=== PATIENT | female | born 1980 | race Caucasian/White ===

== ENCOUNTER 2017-02-01 13:54 | Outpatient (CLI) | payer MEDICAID ==
[~2017-02-01] VITALS: Ht 162.6 cm; Wt 100.2 kg
[2017-02-01 13:57] VITALS: Ht 162.6 cm; Wt 100.2 kg
[2017-02-01] MEDS ORDERED: PREN1TAB31 PO (14:05)
[2017-02-01] MEDS ORDERED: ASPI-535 PO (14:05)
[2017-02-01 14:28] LABS: ADD SCAN DIFF NO
[2017-02-01 14:30] LABS: BASOPHILS % 0.3 % (0.0-2.0); EOSINOPHILS # 0.1 10^3/ul (0.0-0.5); EOSINOPHILS % 1.3 % (0.0-7.0); HEMATOCRIT 33.1 % (37.0-47.0); HEMOGLOBIN 11.2 g/dl (12.0-16.0); LYMPHOCYTES # 1.9 10^3/ul (0.8-2.9); LYMPHOCYTES % 19.2 % (15.0-51.0); MEAN CORPUSCULAR HEMOGLOBIN 30.5 pg (29.0-33.0); MEAN CORPUSCULAR HGB CONC 33.8 g/dl (32.0-37.0); MEAN CORPUSCULAR VOLUME 90.2 fl (82.0-101.0); MEAN PLATELET VOLUME 9.6 fl (7.4-10.4); MONOCYTE # 0.8 10^3/ul (0.3-0.9); MONOCYTES % 7.9 % (0.0-11.0); NEUTROPHIL # 6.9 10^3/ul (1.6-7.5); NEUTROPHILS % 70.5 % (39.0-77.0); PLATELET COUNT 252 10^3/UL (140-415); RED BLOOD COUNT 3.67 10^6/ul (4.20-5.40); RED CELL DISTRIBUTION WIDTH 13.4 % (11.5-14.5); WHITE BLOOD COUNT 9.8 10^3/ul (4.8-10.8)
[2017-02-01 14:48] LABS: ALBUMIN 4.2 g/dl (3.3-4.9); ALBUMIN/GLOBULIN RATIO 1.35; BILIRUBIN,INDIRECT 0.2 mg/dl (0-1.1); BILIRUBIN,TOTAL 0.2 mg/dl (0.2-1.3); CALCIUM 9.4 mg/dl (8.4-10.2); CREATININE 0.45 mg/dl (0.44-1.00); POTASSIUM 3.8 mmol/L (3.5-5.1); TOTAL PROTEIN 7.3 g/dl (6.1-8.1); URIC ACID 4.9 mg/dl (3.1-7.9)
--- NOTE | 2017-02-01 14:58 | RADRPT ---
PROCEDURE: US OB. CLINICAL INDICATION: Size and dates , pH TECHNIQUE: Multiple sonographic images of the pelvis and gravid uterus were obtained. The images were reviewed on a PACS workstation. COMPARISON: No prior studies are available for comparison. FINDINGS: There is a single viable intrauterine gestation. Cardiac activity is present with 129 beats per min [place]. There is a vertex presentation. The placenta is fundal. There is no evidence for an abruption or placenta previa. There is a normal amount of amniotic fluid with an ALBA = 13.8 cm. Measurements were made in order to determine age. The results are as follows: BPD =9.1 cm HC =31.1 cm AC =33 cm FL =7.1 cm Estimated gestational age of approximately 36 weeks and 2 days based on ultrasound measurements. Clinical age: 36 weeks and 5 days. The estimated date of delivery is 02/27/17, based on ultrasound measurements. The EFW = 2958 g, 49%, based on LMP age. RPTAT: AA IMPRESSION: Single viable intrauterine gestation of approximately 36 weeks and 2 days based on ultrasound measu rements. Normal ALBA. .Ken Joel MD, Date Time Electronically viewed and signed by .Ken Joel MD, on 02/01/2017 14:58 .S/
[2017-02-01 15:20] LABS: ADD UMIC NO; URINE BILIRUBIN (Dip) NEGATIVE (NEGATIVE); URINE BLOOD (Dip) NEGATIVE (NEGATIVE); URINE COLOR LT. YELLOW (YELLOW); URINE GLUCOSE (Dip) NEGATIVE (NEGATIVE); URINE KETONES (Dip) TRACE (NEGATIVE); URINE LEUKOCYTE ESTERASE (Dip) NEGATIVE (NEGATIVE); URINE NITRITE (Dip) NEGATIVE (NEGATIVE); URINE TOTAL PROTEIN (Dip) NEGATIVE (NEGATIVE); URINE UROBILINOGEN (Dip) 0.2 E.U./dL (0.1-1.0)
--- NOTE | 2017-02-01 20:59 | CONS ---
Date/Time of Note Date/Time of Note DATE: 02/01/17 TIME: 20:51 Consultation Date/Type/Reason Admit Date/Time February 01, 2070 OB triage consult Reason for Consultation This patient is 36 years old 3 para 2 with estimated date of confinement of 02/24/2017 which makes her 36 weeks and 5 days today. She was referred to the triage unit to rule out possible -induced hypertension. In her past she had 1 spontaneous vaginal delivery and one delivery by section Currently she is taking aspirin 81 mg daily folic acid On examination she is a well-developed well-nourished patient in her late Her vital signs close to normal except that her first blood pressure measurement was 144/84 2 hours later her subsequent blood pressure was 126/79 with pulse rate of 89, respiration 18, oxygen saturation of 99% She was having occasional contraction. heart tone was around 140/min heart rate tracing there was good variability occasional acceleration no deceleration noted Laboratory Tests Test 02/01/17 14:20 White Blood Count 9.810^3/ul Red Blood Count 3.6710^6/ul Hemoglobin 11.2g/dl Hematocrit 33.1% Mean Corpuscular Volume 90.2fl Mean Corpuscular Hemoglobin 30.5pg Mean Corpuscular Hemoglobin Concent 33.8g/dl Red Cell Distribution Width 13.4% Platelet Count 74599^3/UL Mean Platelet Volume 9.6fl Neutrophils % 70.5% Lymphocytes % 19.2% Monocytes % 7.9% Eosinophils % 1.3% Basophils % 0.3% Nucleated Red Blood Cells % 0.0/100WBC Neutrophils # 6.910^3/ul Lymphocytes # 1.910^3/ul Monocytes # 0.810^3/ul Eosinophils # 0.110^3/ul Basophils # 0.010^3/ul Nucleated Red Blood Cells # 0.010^3/ul Urine Color LT. YELLOW Urine Clarity CLEAR Urine pH 6.5 Urine Specific [place] <=1.005 Urine Ketones TRACE Urine Nitrite NEGATIVE Urine Bilirubin NEGATIVE Urine Urobilinogen 0.2 E.U./dL Urine Leukocyte Esterase NEGATIVE Urine Hemoglobin NEGATIVE Urine Glucose NEGATIVE% Urine Total Protein NEGATIVE Sodium Level 140mmol/L Potassium Level 3.8mmol/L Chloride Level 109mmol/L Carbon Dioxide Level 23mmol/L Anion Gap 12 Blood Urea Nitrogen 4mg/dl Creatinine 0.45mg/dl Glucose Level 92mg/dl Uric Acid 4.9mg/dl Calcium Level 9.4mg/dl Total Bilirubin 0.2mg/dl Direct Bilirubin 0.00mg/dl Indirect Bilirubin 0.2mg/dl Aspartate Amino Transf (AST/SGOT) 21IU/L Alanine Aminotransferase (ALT/SGPT) 31IU/L Alkaline Phosphatase 124IU/L Total Protein 7.3g/dl Albumin 4.2g/dl Globulin 3.10g/dl Albumin/Globulin Ratio 1.35 Constitutional: chills, diaphoresis, disoriented, febrile, improved, no complaints, other, poor po, requiring IVF, requiring O2 Eyes: discharge, no complaints, other, pain, redness, visual change ENT: bleeding, congestion, discharge, dysphagia, no complaints, other, pain, sore throat Respiratory: cough, no complaints, other, pain, pleuritic pain, shortness of breath, sputum, wheezing Cardiovascular: chest pain, edema, lightheadedness, no complaints, orthopenea, other, palpitations, paroxysmal nocturnal dyspnea Gastrointestinal: blood, constipation, decreased appetite, diarrhea, flatus, nausea, no complaints, other, pain, passing stool, vomiting Genitourinary: bleeding, discharge, dysuria, flank pain, hematuria, no complaints, other (Due to lack of contractions pelvic exam was not performed) Skin: No bruising, No erythema, No laceration, No no complaints, No other, No pruritis, No rash, No skin lesions Neurologic: other (Knee-jerk reflex was normal), No confusion, No dizziness, No focal-weakness, No headache, No no complaints , No seizure, No syncope Endocrine: No dry skin, No no complaints, No other, No polydypsia, No polyuria , No temp intolerance Additional Comments In reviewing her laboratory tests were basically normal including CBC electrolyte urinalysis and liver function test An ultrasound study was performed the report was a single viable intrauterine gestation heart tone of 129 vertex presentation placenta was fundal her ALBA was reported 13.8 cm her measurement gave her 36 weeks and 5 days date estimated delivery date of February 27, 2017. Her estimated weight was 2958 g which makes her 49th percentile Due to suspicion of preeclampsia 24-hour urine collection was explained to the patient and container was given to collect 24 hours urine Social History Smoking Status: Never smoker Exam/Review of Systems Results Result Diagram: 02/01/17 1420 02/01/17 1420 Results 24 hrs Laboratory Tests Test 02/01/17 14:20 White Blood Count 9.8 Red Blood Count 3.67 L Hemoglobin 11.2 L Hematocrit 33.1 L Mean Corpuscular Volume 90.2 Mean Corpuscular Hemoglobin 30.5 Mean Corpuscular Hemoglobin Concent 33.8 Red Cell Distribution Width 13.4 Platelet Count 252 Mean Platelet Volume 9.6 Neutrophils % 70.5 Lymphocytes % 19.2 Monocytes % 7.9 Eosinophils % 1.3 Basophils % 0.3 Nucleated Red Blood Cells % 0.0 Neutrophils # 6.9 Lymphocytes # 1.9 Monocytes # 0.8 Eosinophils # 0.1 Basophils # 0.0 Nucleated Red Blood Cells # 0.0 Urine Color LT. YELLOW Urine Clarity CLEAR Urine pH 6.5 Urine Specific [place] <=1.005 L Urine Ketones TRACE H Urine Nitrite NEGATIVE Urine Bilirubin NEGATIVE Urine Urobilinogen 0.2 E.U./dL Urine Leukocyte Esterase NEGATIVE Urine Hemoglobin NEGATIVE Urine Glucose NEGATIVE Urine Total Protein NEGATIVE Sodium Level 140 Potassium Level 3.8 Chloride Level 109 Carbon Dioxide Level 23 Anion Gap 12 Blood Urea Nitrogen 4 L Creatinine 0.45 Glucose Level 92 Uric Acid 4.9 Calcium Level 9.4 Total Bilirubin 0.2 Direct Bilirubin 0.00 Indirect Bilirubin 0.2 Aspartate Amino Transf (AST/SGOT) 21 Alanine Aminotransferase (ALT/SGPT) 31 Alkaline Phosphatase 124 H Total Protein 7.3 Albumin 4.2 Globulin 3.10 Albumin/Globulin Ratio 1.35 VLAD CLAY MD Feb 01, 2017 20:59
== END 2017-02-01 16:35 | disposition home or self-care (01) ==
LOC: OBT 13:54 → L-D 13:55 → OBT 16:35
PROVIDERS: ATTEND Obstetrics & Gynecology
DX: O26.893 Other specified pregnancy related conditions, third trimester (principal); R03.0 Elevated blood-pressure reading, without diagnosis of hypertension; O09.523 Supervision of elderly multigravida, third trimester; Z3A.36 36 weeks gestation of pregnancy
CPT/HCPCS: 76815; 80053; 81003; 84560; 85025; Z7500; G0463

== ENCOUNTER 2017-02-03 07:11 | Outpatient (CLI) | payer MEDICAID ==
[~2017-02-03] VITALS: Ht 162.6 cm; Wt 100.4 kg
[~2017-02-03 07:11] MED LIST: ASPI-535 PO; PREN1TAB31 PO
[2017-02-03] MEDS ORDERED: CALC600T5 PO (07:55)
[2017-02-03] MEDS ORDERED: FERR236T PO (07:55)
[2017-02-03 07:57] VITALS: BP 137/89; PULSE 104; RESP 18
--- NOTE | 2017-02-03 07:57 | RADRPT ---
PROCEDURE: US OB. CLINICAL INDICATION: Low ALBA TECHNIQUE: Transabdominal views of the pelvis are available for review. COMPARISON: None. FINDINGS: There is a single intrauterine gestation in a vertex position. The heart rate is present at 137 bpm. The placenta is fundal. There is no evidence of placenta previa or a placental abruption. The ALBA measures 10.8 cm. RPTAT: AA IMPRESSION: Normal ALBA. Physician Samaria Date Time Electronically viewed and signed by Brien Sosa Physician on 02/03/2017 07:57 RA/
[2017-02-03 09:57] LABS: SCRET 0.45 mg/dl (0.44-1.00)
--- NOTE | 2017-02-03 11:42 | TRIAGE ---
OB Triage Datetime Report Generated by CPN: 02/03/2017 11:42 Datetime: 02/03/2017 11:37 Assessment Type: Triage Datetime: 02/03/2017 07:48 Stage of : OB Triage Assessment Type: Triage Maternal Assessment Level of Consciousness: Fully Conscious Headache: Temporal (Annotations: 01/03, LEFT SIDE ONLY ) Blurred Vision: No Respiratory Effort: Unlabored; Regular Rhythm; Equal Expansion Breath Sounds, Left: Clear and Equal Breath Sounds, Right: Clear and Equal Nausea/Vomiting: Denies RUQ Epigastric Pain: Denies Facial Edema: None Temperature Route: Oral Fall Risk Assessment History of Falling: (0) No Secondary Diagnosis: (0) No Ambulatory Aid: (0) Bedrest/Nurse Assist IV Therapy: (0) No Gait: (0) Normal/Bedrest/Immobile Mental Status: (0) Oriented to Own Ability Fall Score: 0 Fall Risk Score Definition: No Risk: No action required Labor Evaluation Frequency: x1 Monitor Mode: External Duration (sec)2399: 50 Quality: Mild Pattern: Normal: <= 5 Contractions in 10 Minutes Resting Tone [place]: Relaxed Contraction Comments: NST [id number] Heart Rate FHR Baseline Rate: 140 Monitor Mode: External US FHR Baseline Changes: No Baseline Change Variability: Moderate 6-25 bpm Accelerations: 15X15 Decelerations: None Category: Category I Comments: NST x22 MINUTES Pain Assessment Pain Scale: 8 Pain Presence: Constant Pain Type: Pressure Pain Location: Right Groin; Left Groin Datetime: 02/03/2017 07:44 Time of Arrival: 02/03/2017 07:06 EGA: 37.0 Arrived By: Ambulatory Arrived From: Home Chief Complaint: DROP OFF 24 HOUR URINE Movement: Present Contractions: Denies/Absent Rupture of Membranes: Denies Vaginal Bleeding: None Vaginal Discharge: Denies Abdominal Trauma: Not Applicable Patient Complaints: Headache; Other Time Provider Notified: 02/03/2017 07:09 Provider Notified: DR. DELSHAD Initial Plan: NST, ALBA, BP Q 15 MIN, PIH LABS Datetime: 02/03/2017 07:24 Monitor Mode: External Monitor Mode: External US Datetime: 02/03/2017 07:13 Stage of : OB Triage Datetime: 02/03/2017 07:09 Stage of : OB Triage Datetime: 02/01/2017 16:12 Comments: pt seen by dr forrohar pt dc home on 24 hr urine collection Datetime: 02/01/2017 16:10 Labor Evaluation Frequency: NONE Monitor Mode: External Pattern: Normal: <= 5 Contractions in 10 Minutes Resting Tone [place]: Relaxed Heart Rate FHR Baseline Rate: 140 Monitor Mode: External US FHR Baseline Changes: No Baseline Change Variability: Moderate 6-25 bpm Accelerations: 15X15 Decelerations: None Category: Category I Datetime: 02/01/2017 15:40 Stage of : OB Triage Labor Evaluation Frequency: NONE Monitor Mode: External Pattern: Normal: <= 5 Contractions in 10 Minutes Heart Rate FHR Baseline Rate: 135 Monitor Mode: External US FHR Baseline Changes: No Baseline Change Variability: Moderate 6-25 bpm Accelerations: 15X15 Decelerations: None Category: Category I Pain Presence: None/Denies Datetime: 02/01/2017 14:59 Labor Evaluation Frequency: NONE Monitor Mode: External Pattern: Normal: <= 5 Contractions in 10 Minutes Heart Rate FHR Baseline Rate: 135 Monitor Mode: External US FHR Baseline Changes: No Baseline Change Variability: Moderate 6-25 bpm Accelerations: 15X15 Decelerations: None Category: Category I Pain Presence: None/Denies Datetime: 02/01/2017 14:36 Comments: U/S AT BED SIDE Datetime: 02/01/2017 14:09 Assessment Type: Triage Maternal Assessment Level of Consciousness: Fully Conscious DTR's/Clonus: DTRs 2+; No Clonus Headache: Denies Blurred Vision: No Respiratory Effort: Unlabored; Regular Rhythm; Equal Expansion Breath Sounds, Left: Clear and Equal Breath Sounds, Right: Clear and Equal Nausea/Vomiting: Denies RUQ Epigastric Pain: Denies Lower Extremities Edema: None Degree: None Upper Extremities Edema: None Degree: None Facial Edema: None Fall Risk Assessment History of Falling: (0) No Secondary Diagnosis: (0) No Ambulatory Aid: (0) Bedrest/Nurse Assist IV Therapy: (0) No Gait: (0) Normal/Bedrest/Immobile Mental Status: (0) Oriented to Own Ability Fall Score: 0 Fall Risk Score Definition: No Risk: No action required Datetime: 02/01/2017 14:08 EGA: 36.5 Datetime: 02/01/2017 14:07 Time of Arrival: 02/01/2017 14:07 Arrived By: Ambulatory Arrived From: Dr. Office Chief Complaint: R/O PIH Movement: Present Rupture of Membranes: Denies Vaginal Bleeding: None Vaginal Discharge: Denies Recent Sexual Intercouse: Denies Abdominal Trauma: Not Applicable Patient Complaints: Other Time Provider Notified: 02/01/2017 16:05 Provider Notified: DELSHAD Initial Plan: EFM Datetime: 02/01/2017 13:58 Comments: FROM [facility] TI R.O PIH.EFM APPLIED.PT DENIES ANY HEAD ACHE ,EPIGASTRIC PAIN OR BLURRY VISION AT THIS TIME.
--- NOTE | 2017-02-19 20:18 | QN ---
Documentation Comment Diagnosis: Elevated blood pressure in . MISTY ERICKSON MD Feb 19, 2017 20:17
== END 2017-02-03 11:32 | disposition left against medical advice (07) ==
LOC: L-D 07:11 → OBT 07:11
PROVIDERS: ATTEND Obstetrics & Gynecology
DX: O26.893 Other specified pregnancy related conditions, third trimester (principal); R03.0 Elevated blood-pressure reading, without diagnosis of hypertension; O09.523 Supervision of elderly multigravida, third trimester; Z3A.37 37 weeks gestation of pregnancy
CPT/HCPCS: 36415; 59025; 76815; 82575; 84156; Z7500; G0463

== ENCOUNTER 2017-02-06 12:48 | Outpatient (CLI) | payer MEDICAID ==
[~2017-02-06] VITALS: Ht 162.6 cm; Wt 100.4 kg
[~2017-02-06 12:48] MED LIST changes: +CALC600T5 PO; +FERR236T PO
[2017-02-06 13:45] VITALS: BP 131/82; PULSE 85; Ht 162.6 cm; Wt 100.4 kg
[2017-02-06 14:04] LABS: ADD SCAN DIFF NO
[2017-02-06 14:06] LABS: BASOPHILS % 0.2 % (0.0-2.0); EOSINOPHILS # 0.1 10^3/ul (0.0-0.5); EOSINOPHILS % 1.2 % (0.0-7.0); HEMATOCRIT 31.4 % (37.0-47.0); HEMOGLOBIN 10.5 g/dl (12.0-16.0); LYMPHOCYTES # 1.7 10^3/ul (0.8-2.9); LYMPHOCYTES % 19.8 % (15.0-51.0); MEAN CORPUSCULAR HGB CONC 33.4 g/dl (32.0-37.0); MEAN CORPUSCULAR VOLUME 89.7 fl (82.0-101.0); MEAN PLATELET VOLUME 9.5 fl (7.4-10.4); MONOCYTE # 0.7 10^3/ul (0.3-0.9); MONOCYTES % 7.5 % (0.0-11.0); NEUTROPHIL # 6.1 10^3/ul (1.6-7.5); NEUTROPHILS % 70.7 % (39.0-77.0); PLATELET COUNT 256 10^3/UL (140-415); RED CELL DISTRIBUTION WIDTH 13.6 % (11.5-14.5); WHITE BLOOD COUNT 8.7 10^3/ul (4.8-10.8)
[2017-02-06 14:08] LABS: ADD UMIC NO; UR BILIRUBIN (Dip) NEGATIVE (NEGATIVE); UR BLOOD (Dip) NEGATIVE (NEGATIVE); UR CLARITY CLEAR (CLEAR); UR COLOR LT. YELLOW (YELLOW); UR GLUCOSE (Dip) NEGATIVE (NEGATIVE); UR KETONES (Dip) 40 (NEGATIVE); UR LEUKOCYTE ESTERASE (Dip) NEGATIVE (NEGATIVE); UR NITRITE (Dip) NEGATIVE (NEGATIVE); UR TOTAL PROTEIN (Dip) NEGATIVE (NEGATIVE); UR UROBILINOGEN (Dip) 0.2 E.U./dL (0.1-1.0)
--- NOTE | 2017-02-06 14:13 | RADRPT ---
PROCEDURE: US OB. CLINICAL INDICATION: PIH , pain TECHNIQUE: Transabdominal views of the pelvis are available for review. COMPARISON: 02/03/17 FINDINGS: There is a single intrauterine gestation in a vertex position. The heart rate is noted at 131 bpm. The placenta is fundal maternal left. The ALBA measures 14.4 cm. RPTAT: AA IMPRESSION: Normal ALBA. .Ken Joel MD, MD Date Time Electronically viewed and signed by .Ken Joel MD, MD on 02/06/2017 14:12 .S/
[2017-02-06 14:30] LABS: ALBUMIN 4.2 g/dl (3.3-4.9); ALBUMIN/GLOBULIN RATIO 1.4; BILIRUBIN,INDIRECT 0.2 mg/dl (0-1.1); BILIRUBIN,TOTAL 0.2 mg/dl (0.2-1.3); CALCIUM 9.5 mg/dl (8.4-10.2); CREATININE 0.45 mg/dl (0.44-1.00); POTASSIUM 3.5 mmol/L (3.5-5.1); TOTAL PROTEIN 7.2 g/dl (6.1-8.1); URIC ACID 4.8 mg/dl (3.1-7.9)
--- NOTE | 2017-03-15 21:16 | QN ---
Documentation Comment Diagnosis; Elevated Blood Pressure in . MISTY ERICKSON MD Mar 15, 2017 21:15
== END 2017-02-06 15:15 | disposition home or self-care (01) ==
LOC: OBT 12:48 → L-D 13:00 → OBT 15:15
PROVIDERS: ATTEND Obstetrics & Gynecology
DX: O26.893 Other specified pregnancy related conditions, third trimester (principal); Z3A.37 37 weeks gestation of pregnancy; R10.9 Unspecified abdominal pain; R03.0 Elevated blood-pressure reading, without diagnosis of hypertension
CPT/HCPCS: 36415; 59025; 76815; 80053; 81003; 84560; 85025; Z7500; G0463

== ENCOUNTER 2017-02-09 15:50 | Outpatient (CLI) | payer MEDICAID ==
[~2017-02-09] VITALS: Ht 162.6 cm; Wt 101.1 kg
[2017-02-09 16:38] LABS: ADD SCAN DIFF NO
[2017-02-09 16:43] LABS: BASOPHILS % 0.1 % (0.0-2.0); EOSINOPHILS # 0.1 10^3/ul (0.0-0.5); EOSINOPHILS % 1.5 % (0.0-7.0); HEMATOCRIT 29.6 % (37.0-47.0); HEMOGLOBIN 10.1 g/dl (12.0-16.0); LYMPHOCYTES # 1.6 10^3/ul (0.8-2.9); MEAN CORPUSCULAR HEMOGLOBIN 30.5 pg (29.0-33.0); MEAN CORPUSCULAR HGB CONC 34.1 g/dl (32.0-37.0); MEAN CORPUSCULAR VOLUME 89.4 fl (82.0-101.0); MEAN PLATELET VOLUME 9.4 fl (7.4-10.4); MONOCYTE # 0.6 10^3/ul (0.3-0.9); NEUTROPHIL # 5.6 10^3/ul (1.6-7.5); NEUTROPHILS % 69.5 % (39.0-77.0); PLATELET COUNT 262 10^3/UL (140-415); RED BLOOD COUNT 3.31 10^6/ul (4.20-5.40); RED CELL DISTRIBUTION WIDTH 13.6 % (11.5-14.5)
--- NOTE | 2017-02-09 16:43 | RADRPT ---
PROCEDURE: US biophysical profile. CLINICAL INDICATION: induced hypertension. TECHNIQUE: Multiple sonographic images of the uterus were obtained. The images were revi ewed on a PACS workstation. COMPARISON: No prior studies are available for comparison. FINDINGS: There is a single live intrauterine gestation. heart rate is 176 beats per minute. The position is cephalic. The placenta is fundal grade III with no abruption or previa. The ALBA is 12.3 cm. (Normal = 5-20 cm.) Breathing Movement: 2 Gross Body Movement: 2 Tone: 2 Qualitative Amniotic Fluid Volume: 2 TOTAL: 8 IMPRESSION: 1. The biophysical score is 8/8. RPTAT: QQ .Ramses Mercado MD, MD Date Time Electronically viewed and signed by .Ramses Mercado MD, on 02/09/2017 16:43 .R/
[2017-02-09 17:01] LABS: ALBUMIN 3.9 g/dl (3.3-4.9); ALBUMIN/GLOBULIN RATIO 1.3; BILIRUBIN,INDIRECT 0.1 mg/dl (0-1.1); BILIRUBIN,TOTAL 0.1 mg/dl (0.2-1.3); CALCIUM 9.3 mg/dl (8.4-10.2); CREATININE 0.41 mg/dl (0.44-1.00); POTASSIUM 3.2 mmol/L (3.5-5.1); TOTAL PROTEIN 6.9 g/dl (6.1-8.1); URIC ACID 5.1 mg/dl (3.1-7.9)
[2017-02-09 17:14] VITALS: BP 142/83; PULSE 99; Ht 162.6 cm; Wt 101.1 kg
[2017-02-09 17:17] LABS: ADD UMIC YES; UR BILIRUBIN (Dip) NEGATIVE (NEGATIVE); UR BLOOD (Dip) TRACE (NEGATIVE); UR CLARITY CLOUDY (CLEAR); UR COLOR LT. YELLOW (YELLOW); UR GLUCOSE (Dip) NEGATIVE (NEGATIVE); UR KETONES (Dip) TRACE (NEGATIVE); UR LEUKOCYTE ESTERASE (Dip) TRACE (NEGATIVE); UR NITRITE (Dip) NEGATIVE (NEGATIVE); UR TOTAL PROTEIN (Dip) NEGATIVE (NEGATIVE); UR UROBILINOGEN (Dip) 0.2 E.U./dL (0.1-1.0)
[2017-02-09 17:58] LABS: UR SQUAMOUS EPITHELIAL CELL MODERATE
[2017-02-09 17:59] LABS: UR BACTERIA MANY
--- NOTE | 2017-03-15 21:34 | QN ---
Documentation Comment Diagnosis: Elevated Blood Pressure in . MISTY ERICKSON MD Mar 15, 2017 21:33
== END 2017-02-09 18:14 | disposition home or self-care (01) ==
LOC: OBT 15:50 → L-D 15:51 → OBT 18:14
PROVIDERS: ATTEND Obstetrics & Gynecology
DX: O26.893 Other specified pregnancy related conditions, third trimester (principal); Z3A.37 37 weeks gestation of pregnancy; R10.9 Unspecified abdominal pain; R03.0 Elevated blood-pressure reading, without diagnosis of hypertension
CPT/HCPCS: 76818; 80053; 81001; 84560; 85025; Z7500; G0463

== ENCOUNTER 2017-02-12 08:31 | Outpatient (CLI) | payer MEDICAID ==
--- NOTE | 2017-02-10 02:22 | QN ---
Documentation Comment iup 37 weeks here for HPB vss exam wnl nst reactive a/p iup 37 weeks elevated BP-stable fu as schedueled DAVE RANDHAWA MD Feb 10, 2017 02:22
[~2017-02-12] VITALS: Ht 162.6 cm; Wt 101.3 kg
[2017-02-12 09:07] VITALS: BP 126/76; PULSE 103; RESP 18
--- NOTE | 2017-02-12 09:24 | RADRPT ---
PROCEDURE: US OB. CLINICAL INDICATION: Low ALBA TECHNIQUE: Transabdominal views of the pelvis are available for review. COMPARISON: Obstetrical ultrasound from 02/09/2017 FINDINGS: There is a single intrauterine gestation in a vertex position. The heart rate is present at 139 bpm. The placenta is fundal and right lateral in location. There is no evidence of placenta previa or a placental abruption. The ALBA measures 13.6 cm. RPTAT: AA IMPRESSION: Normal ALBA. Physician Samaria Date Time Electronically viewed and signed by Brien Sosa Physician on 02/12/2017 09:24 RA/
[2017-02-12 09:25] LABS: ADD SCAN DIFF NO
[2017-02-12 09:31] LABS: BASOPHILS % 0.2 % (0.0-2.0); EOSINOPHILS # 0.1 10^3/ul (0.0-0.5); EOSINOPHILS % 1.2 % (0.0-7.0); HEMATOCRIT 30.7 % (37.0-47.0); HEMOGLOBIN 10.3 g/dl (12.0-16.0); LYMPHOCYTES # 1.2 10^3/ul (0.8-2.9); LYMPHOCYTES % 14.1 % (15.0-51.0); MEAN CORPUSCULAR HEMOGLOBIN 30.2 pg (29.0-33.0); MEAN CORPUSCULAR HGB CONC 33.6 g/dl (32.0-37.0); MEAN PLATELET VOLUME 9.7 fl (7.4-10.4); MONOCYTE # 0.7 10^3/ul (0.3-0.9); MONOCYTES % 8.3 % (0.0-11.0); NEUTROPHIL # 6.5 10^3/ul (1.6-7.5); NEUTROPHILS % 75.6 % (39.0-77.0); PLATELET COUNT 248 10^3/UL (140-415); RED BLOOD COUNT 3.41 10^6/ul (4.20-5.40); RED CELL DISTRIBUTION WIDTH 13.8 % (11.5-14.5); WHITE BLOOD COUNT 8.6 10^3/ul (4.8-10.8)
[2017-02-12 09:43] LABS: ADD UMIC YES; UR BILIRUBIN (Dip) NEGATIVE (NEGATIVE); UR BLOOD (Dip) NEGATIVE (NEGATIVE); UR CLARITY CLEAR (CLEAR); UR COLOR YELLOW (YELLOW); UR GLUCOSE (Dip) NEGATIVE (NEGATIVE); UR KETONES (Dip) 15 (NEGATIVE); UR LEUKOCYTE ESTERASE (Dip) NEGATIVE (NEGATIVE); UR NITRITE (Dip) NEGATIVE (NEGATIVE); UR TOTAL PROTEIN (Dip) TRACE (NEGATIVE); UR UROBILINOGEN (Dip) 0.2 E.U./dL (0.1-1.0)
[2017-02-12 09:49] LABS: ALBUMIN 4.1 g/dl (3.3-4.9); ALBUMIN/GLOBULIN RATIO 1.46; BILIRUBIN,INDIRECT 0.2 mg/dl (0-1.1); BILIRUBIN,TOTAL 0.2 mg/dl (0.2-1.3); CALCIUM 8.8 mg/dl (8.4-10.2); CREATININE 0.4 mg/dl (0.44-1.00); POTASSIUM 3.3 mmol/L (3.5-5.1); TOTAL PROTEIN 6.9 g/dl (6.1-8.1); URIC ACID 4.5 mg/dl (3.1-7.9)
[2017-02-12 10:40] LABS: UR BACTERIA FEW; UR SQUAMOUS EPITHELIAL CELL FEW; URINE RBCS NONE SEEN /HPF (0)
--- NOTE | 2017-02-12 11:12 | TRIAGE ---
OB Triage Datetime Report Generated by CPN: 02/12/2017 11:12 Datetime: 02/12/2017 10:43 Labor Evaluation Frequency: 0 Monitor Mode: External Pattern: Normal: <= 5 Contractions in 10 Minutes Resting Tone [place]: Relaxed Heart Rate FHR Baseline Rate: 140 FHR Baseline Changes: No Baseline Change Variability: Moderate 6-25 bpm Accelerations: 15X15 Decelerations: None Category: Category I Datetime: 02/12/2017 10:01 Labor Evaluation Frequency: 0 Monitor Mode: External Pattern: Normal: <= 5 Contractions in 10 Minutes Resting Tone [place]: Relaxed Contraction Comments: IRRITABILITIES x2 Heart Rate FHR Baseline Rate: 140 Monitor Mode: External US FHR Baseline Changes: No Baseline Change Variability: Moderate 6-25 bpm Accelerations: 15X15 Decelerations: None Category: Category I Datetime: 02/12/2017 09:08 Time of Arrival: 02/12/2017 08:26 EGA: 38.2 Arrived By: Ambulatory Arrived From: Home Chief Complaint: FOLLOW UP; PT TO RETURN TODAY FOR REPEAT ALBA, U/A, CBC, CMP, URIC ACID. Movement: Present Contractions: Denies/Absent Rupture of Membranes: Denies Vaginal Bleeding: None Vaginal Discharge: Denies Abdominal Trauma: Not Applicable Patient Complaints: Other Additional Patient Complaints: LOWER ABDOMINAL PAIN AT INCISION OF 310 Time Provider Notified: 02/12/2017 09:13 Provider Notified: DR. ERICKSON Initial Plan: EFM x2, ALBA, U/A, CBC, CMP, URIC ACID Datetime: 02/12/2017 08:44 Stage of : OB Triage Assessment Type: Triage Maternal Assessment Level of Consciousness: Fully Conscious Headache: Denies Blurred Vision: No Respiratory Effort: Unlabored; Regular Rhythm; Equal Expansion Breath Sounds, Left: Clear and Equal Breath Sounds, Right: Clear and Equal Nausea/Vomiting: Denies RUQ Epigastric Pain: Denies Lower Extremities Edema: None Degree: None Upper Extremities Edema: None Degree: None Facial Edema: None Temperature Route: Oral Fall Risk Assessment History of Falling: (0) No Secondary Diagnosis: (0) No Ambulatory Aid: (0) Bedrest/Nurse Assist IV Therapy: (0) No Gait: (0) Normal/Bedrest/Immobile Mental Status: (0) Oriented to Own Ability Fall Score: 0 Fall Risk Score Definition: No Risk: No action required Datetime: 02/09/2017 18:03 Stage of : OB Triage Datetime: 02/09/2017 18:00 Labor Evaluation Frequency: 0 Monitor Mode: External Pattern: Normal: <= 5 Contractions in 10 Minutes Resting Tone [place]: Relaxed Heart Rate FHR Baseline Rate: 135 Monitor Mode: External US Variability: Moderate 6-25 bpm Accelerations: 10X10 Decelerations: None Category: Category I Pain Assessment Pain Scale: 0 Pain Presence: None/Denies Pain Type: N/A Pain Goal: 3 Pain Relief Measures: Comfort Measures Datetime: 02/09/2017 17:45 Stage of : OB Triage Datetime: 02/09/2017 17:39 Stage of : OB Triage Datetime: 02/09/2017 17:09 Stage of : OB Triage Assessment Type: Triage Maternal Assessment Level of Consciousness: Fully Conscious DTR's/Clonus: DTRs 2+; No Clonus Headache: Denies Blurred Vision: No Respiratory Effort: Unlabored; Regular Rhythm; Equal Expansion Breath Sounds, Left: Clear and Equal Breath Sounds, Right: Clear and Equal Nausea/Vomiting: Denies RUQ Epigastric Pain: Denies Facial Edema: None Temperature Route: Axillary Fall Risk Assessment History of Falling: (0) No Secondary Diagnosis: (0) No Ambulatory Aid: (0) Bedrest/Nurse Assist IV Therapy: (0) No Gait: (0) Normal/Bedrest/Immobile Mental Status: (0) Oriented to Own Ability Fall Score: 0 Fall Risk Score Definition: No Risk: No action required Labor Evaluation Frequency: APPLIED Monitor Mode: External Heart Rate FHR Baseline Rate: 135 Monitor Mode: External US Variability: Moderate 6-25 bpm Accelerations: 10X10 Decelerations: None Category: Category I Pain Assessment Pain Scale: 0 Pain Presence: None/Denies Pain Type: N/A Pain Goal: 3 Pain Relief Measures: Comfort Measures Datetime: 02/06/2017 15:47 Time of Arrival: 02/09/2017 15:45 EGA: 37.6 Arrived By: Ambulatory Arrived From: Home Chief Complaint: FOLLOW UP PIH, DENIES UC'S, BLEEDING OR LEAKING OF FLUID Movement: Present Contractions: Denies/Absent Rupture of Membranes: Denies Vaginal Bleeding: None Vaginal Discharge: Denies Recent Sexual Intercouse: Denies Abdominal Trauma: Not Applicable Patient Complaints: None Time Provider Notified: 02/09/2017 17:39 Provider Notified: DELSHAD Initial Plan: MONITOR, PIH PANEL, BPP/ALBA Datetime: 02/06/2017 15:03 Stage of : OB Triage Datetime: 02/06/2017 14:44 Labor Evaluation Frequency: 0 Monitor Mode: External Resting Tone [place]: Relaxed Heart Rate FHR Baseline Rate: 135 Monitor Mode: External US Variability: Moderate 6-25 bpm Accelerations: 10X10 Decelerations: None Category: Category I Pain Assessment Pain Scale: 0 Pain Presence: None/Denies Pain Type: N/A Pain Goal: 3 Pain Relief Measures: Comfort Measures Datetime: 02/06/2017 13:42 Stage of : OB Triage Assessment Type: Triage Maternal Assessment Level of Consciousness: Fully Conscious DTR's/Clonus: DTRs 2+; No Clonus Headache: Denies Blurred Vision: No Respiratory Effort: Unlabored; Regular Rhythm; Equal Expansion Breath Sounds, Left: Clear and Equal Breath Sounds, Right: Clear and Equal Nausea/Vomiting: Denies RUQ Epigastric Pain: Denies Facial Edema: None Temperature Route: Axillary Fall Risk Assessment History of Falling: (0) No Secondary Diagnosis: (0) No Ambulatory Aid: (0) Bedrest/Nurse Assist IV Therapy: (0) No Gait: (0) Normal/Bedrest/Immobile Mental Status: (0) Oriented to Own Ability Fall Score: 0 Fall Risk Score Definition: No Risk: No action required Labor Evaluation Frequency: 0 Monitor Mode: External Resting Tone [place]: Relaxed Heart Rate FHR Baseline Rate: 135 Monitor Mode: External US Variability: Moderate 6-25 bpm Accelerations: 10X10 Decelerations: None Category: Category I Pain Assessment Pain Scale: 0 Pain Presence: None/Denies Pain Goal: 3 Pain Relief Measures: Comfort Measures Datetime: 02/06/2017 13:41 Time of Arrival: 02/06/2017 13:00 EGA: 37.3 Arrived By: Ambulatory Arrived From: Home Chief Complaint: FOLLOW UP PIH, DENIES UC'S, BLEEDING, ORLEAKING Movement: Present Contractions: Denies/Absent Rupture of Membranes: Denies Vaginal Bleeding: None Vaginal Discharge: Denies Recent Sexual Intercouse: Denies Abdominal Trauma: Not Applicable Patient Complaints: None Time Provider Notified: 02/06/2017 15:03 Provider Notified: DELSHAD Initial Plan: MONITOR, ALBA,CBC,CMP,URIC ACID, U/A Datetime: 02/03/2017 07:48 Fall Score: 0 Fall Risk Score Definition: No Risk: No action required Datetime: 02/03/2017 07:44 EGA: 37.0 Datetime: 02/01/2017 14:09 Fall Score: 0 Fall Risk Score Definition: No Risk: No action required Datetime: 02/01/2017 14:08 EGA: 36.5
== END 2017-02-12 11:00 | disposition home or self-care (01) ==
LOC: OBT 08:31 → L-D 08:32 → OBT 11:00
PROVIDERS: ATTEND Obstetrics & Gynecology
DX: O26.893 Other specified pregnancy related conditions, third trimester (principal); R03.0 Elevated blood-pressure reading, without diagnosis of hypertension; O09.523 Supervision of elderly multigravida, third trimester; Z3A.37 37 weeks gestation of pregnancy
CPT/HCPCS: 76815; 80053; 81001; 84560; 85025

== ENCOUNTER 2017-02-15 12:30 | Outpatient (CLI) | payer MEDICAID ==
[~2017-02-15] VITALS: Ht 162.6 cm; Wt 100.8 kg
[~2017-02-15 12:30] MED LIST changes: -ASPI-535 PO
[2017-02-15 12:55] VITALS: Ht 162.6 cm; Wt 100.8 kg
[2017-02-15 12:56] VITALS: BP 139/81; PULSE 78
[2017-02-15 13:15] LABS: ADD SCAN DIFF NO
[2017-02-15 13:17] LABS: BASOPHILS % 0.1 % (0.0-2.0); EOSINOPHILS # 0.1 10^3/ul (0.0-0.5); EOSINOPHILS % 1.6 % (0.0-7.0); HEMATOCRIT 30.8 % (37.0-47.0); HEMOGLOBIN 10.6 g/dl (12.0-16.0); LYMPHOCYTES # 1.5 10^3/ul (0.8-2.9); MEAN CORPUSCULAR HEMOGLOBIN 30.4 pg (29.0-33.0); MEAN CORPUSCULAR HGB CONC 34.4 g/dl (32.0-37.0); MEAN CORPUSCULAR VOLUME 88.3 fl (82.0-101.0); MEAN PLATELET VOLUME 9.5 fl (7.4-10.4); MONOCYTE # 0.8 10^3/ul (0.3-0.9); MONOCYTES % 9.4 % (0.0-11.0); NEUTROPHIL # 5.7 10^3/ul (1.6-7.5); NEUTROPHILS % 70.3 % (39.0-77.0); PLATELET COUNT 248 10^3/UL (140-415); RED BLOOD COUNT 3.49 10^6/ul (4.20-5.40); RED CELL DISTRIBUTION WIDTH 13.6 % (11.5-14.5); WHITE BLOOD COUNT 8.2 10^3/ul (4.8-10.8)
[2017-02-15 13:27] LABS: UR BACTERIA MANY /HPF (NONE SEEN); UR BUDDING YEAST FEW /HPF (NONE SEEN); UR RBC 0 /HPF (0-5); UR SQUAMOUS EPITHELIAL CELL FEW /HPF (FEW)
[2017-02-15 13:33] LABS: ALBUMIN/GLOBULIN RATIO 1.25; BILIRUBIN,INDIRECT 0.2 mg/dl (0-1.1); BILIRUBIN,TOTAL 0.2 mg/dl (0.2-1.3); CALCIUM 9.1 mg/dl (8.4-10.2); CREATININE 0.39 mg/dl (0.44-1.00); POTASSIUM 3.3 mmol/L (3.5-5.1); TOTAL PROTEIN 7.2 g/dl (6.1-8.1); URIC ACID 4.3 mg/dl (3.1-7.9)
[2017-02-15 13:35] LABS: ADD UMIC NO; UR ASCORBIC ACID NEGATIVE (NEGATIVE); UR BILIRUBIN (Dip) NEGATIVE (NEGATIVE); UR BLOOD (Dip) NEGATIVE (NEGATIVE); UR CLARITY CLEAR (CLEAR); UR COLOR YELLOW (YELLOW); UR GLUCOSE (Dip) NEGATIVE (NEGATIVE); UR KETONES (Dip) NEGATIVE (NEGATIVE); UR LEUKOCYTE ESTERASE (Dip) NEGATIVE Leu/ul (NEGATIVE); UR NITRITE (Dip) NEGATIVE (NEGATIVE); UR SPECIFIC GRAVITY (Dip) 1.005 (1.003-1.030); UR TOTAL PROTEIN (Dip) NEGATIVE (NEGATIVE); UR UROBILINOGEN (Dip) NEGATIVE (NEGATIVE)
--- NOTE | 2017-02-15 13:48 | RADRPT ---
PROCEDURE: Limited OB ultrasound CLINICAL INDICATION: induced hypertension TECHNIQUE: Sonographic evaluation to assess the ALBA was performed. Transabdominal imaging of the gravid uterus was performed. COMPARISON: OB ultrasound dated 02/12/2017 FINDINGS: There is a single live intrauterine with a heart rate of 143 bpm. position is cephalic. The placenta is fundal. The ALBA measures 12.1 cm. IMPRESSION: The ALBA measures 12.1 cm. RPTAT: HH .Mirta Lynch MD, MD Date Time Electronically viewed and signed by .Mirta Lynch MD, MD on 02/15/2017 13:47 .G/
== END 2017-02-15 15:05 | disposition home or self-care (01) ==
LOC: L-D 12:30 → OBT 12:30
PROVIDERS: ATTEND Obstetrics & Gynecology
DX: O13.3 Gestational [pregnancy-induced] hypertension without significant proteinuria, third trimester (principal); O09.523 Supervision of elderly multigravida, third trimester; Z3A.38 38 weeks gestation of pregnancy
CPT/HCPCS: 36415; 76815; 80053; 81003; 84560; 85025; Z7500; G0463

== ENCOUNTER 2017-02-17 10:20 | Inpatient (IN) | payer MEDICAID ==
[~2017-02-17] VITALS: Ht 160 cm; Wt 99.0 kg
[~2017-02-17 10:20] MED LIST changes: +OXYTOCIN 30 UNITS/LR 500 ML BAG IV ONE
[2017-02-17 10:42] VITALS: Ht 160 cm; Wt 99.0 kg
[2017-02-17 10:43] VITALS: BP 145/93; PULSE 99
[2017-02-17] MEDS: LACTATED RINGER'S 1,000 ML IV SCH ×3 (10:57→17:39)
[2017-02-17] MEDS ORDERED: OXYTOCIN 30 UNITS/LR 500 ML IV SCH (11:00)
[2017-02-17] MEDS ORDERED: MISOPROSTOL 200 MCG TAB PR PRN ×2 (11:00→18:00)
[2017-02-17] MEDS ORDERED: CARBOPROST 250 MCG INJ IM PRN ×2 (11:00→18:00)
[2017-02-17] MEDS ORDERED: OXYTOCIN 30 UNITS/LR 500 ML IV PRN ×2 (11:00→18:00)
[2017-02-17] MEDS ORDERED: METHYLERGONOVINE 0.2 MG INJ IM PRN ×2 (11:00→18:00)
[2017-02-17] MEDS ORDERED: CEFAZOLIN 2 GM/50 ML (PMX) 50 ML IV SCH (11:00)
[2017-02-17] MEDS ORDERED: OXYTOCIN 30 UNITS/LR 500 ML IVPB ONE (11:00)
[2017-02-17 11:04] LABS: ADD SCAN DIFF NO
[2017-02-17 11:31] LABS: BASOPHILS % 0.1 % (0.0-2.0); EOSINOPHILS # 0.2 10^3/ul (0.0-0.5); EOSINOPHILS % 2.1 % (0.0-7.0); HEMATOCRIT 32.6 % (37.0-47.0); LYMPHOCYTES # 1.6 10^3/ul (0.8-2.9); LYMPHOCYTES % 19.2 % (15.0-51.0); MEAN CORPUSCULAR HGB CONC 33.7 g/dl (32.0-37.0); MEAN CORPUSCULAR VOLUME 88.8 fl (82.0-101.0); MEAN PLATELET VOLUME 9.8 fl (7.4-10.4); MONOCYTE # 0.6 10^3/ul (0.3-0.9); MONOCYTES % 7.8 % (0.0-11.0); NEUTROPHIL # 5.7 10^3/ul (1.6-7.5); NEUTROPHILS % 70.1 % (39.0-77.0); PLATELET COUNT 257 10^3/UL (140-415); RED BLOOD COUNT 3.67 10^6/ul (4.20-5.40); RED CELL DISTRIBUTION WIDTH 13.6 % (11.5-14.5); WHITE BLOOD COUNT 8.2 10^3/ul (4.8-10.8)
[2017-02-17 11:43] LABS: INR 0.92; PROTIME 12.4 Sec (12.2-14.2)
[2017-02-17] MEDS ORDERED: ONDANSETRON 4 MG INJ ONE (12:04)
[2017-02-17] MEDS ORDERED: CITRIC ACID/SODIUM CITRATE 15 ML CUP ONE (12:04)
[2017-02-17 12:27] LABS: PARTIAL THROMBOPLASTIN TIME 26.9 Sec (25.0-35.0)
[2017-02-17] MEDS ORDERED: ONDANSETRON 4 MG INJ IV ONE (12:30)
[2017-02-17] MEDS ORDERED: CITRIC ACID/SODIUM CITRATE 15 ML CUP PO ONE (12:30)
[2017-02-17] MEDS ORDERED: morphine SULFATE/PF (10 MG/10 ML) INJ ONE (12:37)
[2017-02-17] MEDS ORDERED: PHENYLephrine (100 MCG/ML) 5ML SYG ONE (12:37)
[2017-02-17] MEDS ORDERED: OXYTOCIN 10 UNIT INJ ONE (12:37)
--- NOTE | 2017-02-17 12:53 | PREOPHP ---
DATE OF ADMISSION: 02/17/2017 HISTORY: A 36-year-old female, 3, para 2, estimated date of delivery of 02/24/2017 at 39 we eks' gestation, admitted for a repeat section. The patient also desires surgical steriliza tion. PAST MEDICAL HISTORY: Unremarkable. PAST SURGICAL HISTORY: section. ALLERGIES: NO KNOWN ALLERGIES. FAMILY HISTORY: Diabetes. PHYSICAL EXAMINATION: VITAL SIGNS: The patient is afebrile. Vital signs are stable. HEAD, NECK AND CHEST EXAMINATION: Within normal limits. ABDOMEN: Soft, nontender and gravid. EXTREMITY EXAMINATION: Within normal limits. NEUROLOGIC EXAMINATION: Within normal limits. IMPRESSION: at term, with a previous section. The patient desires surgical ster ilization. PLAN: Delivery by repeat section and bilateral tubal ligation. The risks, benefits and al ternatives of the procedure were explained to the patient. The patient has been counseled about all of her contraceptive options, including all methods of sterilization. It was explained to the jesse ent that with bilateral tubal ligation there is a chance of failure resulting in an ectopic pregnanc y and/or intrauterine . After counseling the patient stated she understood and gave inform ed consent for the procedures. Dictated By: MISTY LUDWIG/LUZ Conf#: [id number] DID#: [id number]
[2017-02-17] MEDS ORDERED: KETOROLAC 30 MG INJ ONE (12:57)
[2017-02-17] MEDS ORDERED: METOCLOPRAMIDE 10 MG INJ ONE (12:57)
[2017-02-17] MEDS ORDERED: DEXAMETHASONE 4 MG/ML 1 ML INJ ONE (12:57)
[2017-02-17] MEDS ORDERED: LABETALOL HCL 20MG INJ ONE (12:57)
[2017-02-17] MEDS ORDERED: ONDANSETRON 4 MG INJ IV PRN (13:30)
[2017-02-17] MEDS ORDERED: HYDROmorphONE 1 MG/ML SYG IV PRN ×2 (13:30)
[2017-02-17] MEDS ORDERED: TRIMETHOBENZAMIDE 100 MG/ML VIAL IM PRN (13:30)
[2017-02-17] MEDS ORDERED: morphine 4 MG/ML VIAL IV PRN (13:30)
[2017-02-17] MEDS ORDERED: NALOXONE (0.4 MG/ML) INJ IV PRN (13:30)
[2017-02-17] MEDS ORDERED: morphine 2 MG INJ IV PRN (13:30)
[2017-02-17] MEDS ORDERED: NALBUPHINE HCL (10 MG/1 ML) INJ IV PRN (13:30)
[2017-02-17] MEDS ORDERED: ACETAMINOPHEN 500 MG TAB PO PRN (13:30)
[2017-02-17] MEDS ORDERED: HYDROCODONE/APAP (5/325) TAB PO PRN (13:30)
[2017-02-17] MEDS: OXYTOCIN 30 UNITS/LR 500 ML IV SCH ×4 (15:17→20:57)
[2017-02-17] MEDS: DIPHENHYDRAMINE 50 MG INJ IV PRN ×2 (15:36→20:24)
[2017-02-17 17:30] VITALS: BP 134/70; PULSE 82; RESP 18
[2017-02-17 18:00] VITALS: BP 134/70; PULSE 84; RESP 18
[2017-02-17] MEDS ORDERED: LANOLIN 7 GM TUBE TOP PRN (18:00)
[2017-02-17] MEDS ORDERED: OXYCODONE/ACETAMINOPHEN (5/325) TAB PO PRN (18:00)
[2017-02-17 18:30] VITALS: BP 132/75; PULSE 84
[2017-02-17 19:40] VITALS: BP 122/68; PULSE 90; RESP 18
[2017-02-17] MEDS: SENNA/DOCUSATE NA (8.6MG/50MG) TAB PO SCH (21:00)
[2017-02-18 00:30] VITALS: BP 122/68; PULSE 92; RESP 18
[2017-02-18] MEDS: OXYTOCIN 30 UNITS/LR 500 ML IV SCH (01:26)
[2017-02-18] MEDS: KETOROLAC 30 MG INJ IV PRN ×2 (01:27→07:49)
[2017-02-18] MEDS: LACTATED RINGER'S 1,000 ML IV SCH ×2 (02:34→05:24)
[2017-02-18 04:30] VITALS: BP 128/77; PULSE 87; RESP 18
[2017-02-18 07:31] LABS: ADD SCAN DIFF NO
[2017-02-18 07:49] VITALS: BP 105/59; PULSE 82; RESP 20
[2017-02-18 07:53] LABS: BASOPHILS % 0.2 % (0.0-2.0); EOSINOPHILS # 0.1 10^3/ul (0.0-0.5); EOSINOPHILS % 0.9 % (0.0-7.0); HEMATOCRIT 29.2 % (37.0-47.0); HEMOGLOBIN 9.5 g/dl (12.0-16.0); LYMPHOCYTES # 1.6 10^3/ul (0.8-2.9); LYMPHOCYTES % 14.3 % (15.0-51.0); MEAN CORPUSCULAR HEMOGLOBIN 29.5 pg (29.0-33.0); MEAN CORPUSCULAR HGB CONC 32.5 g/dl (32.0-37.0); MEAN CORPUSCULAR VOLUME 90.7 fl (82.0-101.0); MONOCYTE # 0.9 10^3/ul (0.3-0.9); MONOCYTES % 8.2 % (0.0-11.0); NEUTROPHIL # 8.7 10^3/ul (1.6-7.5); NEUTROPHILS % 75.9 % (39.0-77.0); PLATELET COUNT 213 10^3/UL (140-415); RED BLOOD COUNT 3.22 10^6/ul (4.20-5.40); RED CELL DISTRIBUTION WIDTH 13.7 % (11.5-14.5); WHITE BLOOD COUNT 11.5 10^3/ul (4.8-10.8)
[2017-02-18] MEDS: SENNA/DOCUSATE NA (8.6MG/50MG) TAB PO SCH ×2 (09:26→20:37)
--- NOTE | 2017-02-18 11:14 | OPR ---
DATE OF OPERATION: 02/17/2017 PREOPERATIVE DIAGNOSES: at term, with previous section, and voluntary sterilizat ion. POSTOPERATIVE DIAGNOSES: 1. at term, with previous section, and voluntary sterilization. 2. Omental adhesions. OPERATION PERFORMED: Repeat low transverse section, lysis of omental adhesions, bilateral tubal ligation. SURGEON: Dr. Mota SWITCH TECHNICIAN: Dr. David Arreguin ANESTHESIA: Spinal. ANESTHESIOLOGIST: PROCEDURE: The patient was taken to the operating room and placed on the operating table. After lopez ccessful spinal anesthesia was given the patient was placed in the supine position. The area was pr epared and draped in the usual sterile fashion. Spinal anesthesia was tested and was satisfactory. Using a scalpel, a Pfannenstiel incision was made about 2 fingerbreadths above the symphysis pubis. The incision was carried to the fascia. The fascia was incised and extended bilaterally with Benítez scissors. Two Kochers were used to separate the fascia from the muscle. The muscle was dissected down to the peritoneum. The peritoneum was secured with 2 Kellys and incised with Metzenbaum scisso rs. Upon entering the peritoneal cavity there were omental adhesions noted on the lateral aspect of the uterus. Sharp lysis of adhesions was performed and the adhesion sites were ligated with 0 plai n suture ligature. Using a scalpel, a small transverse incision was made in the lower segment of th e uterus. Upon entering the uterine cavity, bandage scissors were inserted to extend the incision b ilaterally and curved up. The baby was delivered from a cephalic presentation. After suctioning of clear amniotic fluid the baby was handed off to the team in attendance. Apgars were 9 and 9. The placenta was delivered without difficulty. The uterus was closed with #1 Monocryl continuo us locked. After assuring hemostasis both ovaries and tubes were inspected and they looked normal. The right fallopian tube was grasped with a Dominic. Using a 0 plain suture ligature, a 5-cm segmen t of the right fallopian tube was doubly ligated. Using left fallopian tube. Aft er assuring hemostasis, the pelvic cavity was irrigated with warm saline. The peritoneum was closed with 2-0 Vicryl continuous. The fascia was closed with #1 Vicryl continuous in 2 segments. The lopez bcutaneous tissue was reapproximated with 0 chromic continuous. The skin was closed with saeed. ESTIMATED BLOOD LOSS: 500 mL. COMPLICATIONS: None. COUNTS: All counts were correct. Dictated By: MISTY LUDWIG/LUZ Conf#: [id number] DID#: [id number]
[2017-02-18 12:00] VITALS: BP 108/73; PULSE 90; RESP 19
[2017-02-18] MEDS: IBUPROFEN 800 MG TAB PO SCH ×2 (14:00→21:56)
[2017-02-18 16:00] VITALS: BP 134/77; PULSE 80; RESP 19
[2017-02-18] MEDS: OXYCODONE/ACETAMINOPHEN (5/325) TAB PO PRN (16:00)
--- NOTE | 2017-02-18 16:04 | QN ---
Documentation Comment No cpmplaint Afebrile VSS Abdomen soft ND POD #1 Stable Ambulate Advance diet. MISTY ERICKSON MD Feb 18, 2017 16:04
--- NOTE | 2017-02-18 18:49 | OPPN ---
Date/Time of Note Date/Time of Note DATE: 02/18/17 TIME: 18:49 Post-Anesthesia Notes Post-Anesthesia Note Last documented vital signs Vital Signs Date Time Temp Pulse Resp B/P Pulse Ox O2 Delivery O2 Flow Rate FiO2 02/18/17 16:00 98.1 80 19 134/77 Room Air 02/18/17 05:27 95 21 Activity: WNL Respiratory function: WNL Cardiovascular function: WNL Mental status: Baseline Pain reasonably controlled: Yes Hydration appropriate: Yes Nausea/Vomiting absent: Yes CHANEL SOMERS MD Feb 18, 2017 18:49
[2017-02-18 19:45] VITALS: BP 134/82; PULSE 86; RESP 18
[2017-02-18] MEDS: FERROUS SULFATE (EC) 325 MG TAB PO SCH (20:37)
[2017-02-19] MEDS: OXYCODONE/ACETAMINOPHEN (5/325) TAB PO PRN ×2 (04:03→12:28)
[2017-02-19 04:05] VITALS: BP 127/75; PULSE 80; RESP 18
[2017-02-19] MEDS: IBUPROFEN 800 MG TAB PO SCH ×3 (06:24→23:57)
[2017-02-19 08:30] VITALS: BP 123/89; PULSE 83; RESP 14
[2017-02-19] MEDS: FERROUS SULFATE (EC) 325 MG TAB PO SCH ×3 (09:22→21:12)
[2017-02-19] MEDS: SENNA/DOCUSATE NA (8.6MG/50MG) TAB PO SCH ×2 (09:22→21:12)
[2017-02-19 16:25] VITALS: BP 137/83; PULSE 85; RESP 16
--- NOTE | 2017-02-19 19:51 | QN ---
Documentation Comment No complaint Afebrile VSS Abdomen soft Stable Continue with present care. MISTY ERICKSON MD Feb 19, 2017 19:51
[2017-02-19 20:00] VITALS: BP 154/81; PULSE 77; RESP 18
[2017-02-20] VITALS (8 sets, daily range): BP systolic 137–162; BP diastolic 71–89; PULSE 78–84; RESP 18–20
[2017-02-20] MEDS: IBUPROFEN 800 MG TAB PO SCH ×3 (05:27→21:50)
[2017-02-20] MEDS: FERROUS SULFATE (EC) 325 MG TAB PO SCH ×3 (07:43→21:50)
[2017-02-20] MEDS: OXYCODONE/ACETAMINOPHEN (5/325) TAB PO PRN ×4 (07:43→23:56)
[2017-02-20] MEDS: SENNA/DOCUSATE NA (8.6MG/50MG) TAB PO SCH ×2 (07:43→21:50)
[2017-02-20] MEDS ORDERED: DIPHTH/TET/ACEL PERTUSS (ADULT) 0.5 ML VIAL IM* ONE (09:00)
--- NOTE | 2017-02-20 12:19 | QN ---
Documentation Comment No complaint Afebrile VSS Abdomen soft POD #3 Stable Continue present care. MISTY ERICKSON MD Feb 20, 2017 12:19
[2017-02-20] MEDS: LABETALOL 200 MG TAB PO SCH ×2 (16:46→21:51)
[2017-02-21] VITALS (8 sets, daily range): BP systolic 142–164; BP diastolic 79–107; PULSE 70–89; RESP 20
[2017-02-21] MEDS: LABETALOL 200 MG TAB PO SCH ×3 (05:43→20:48)
[2017-02-21] MEDS: IBUPROFEN 800 MG TAB PO SCH ×3 (05:43→20:48)
[2017-02-21] MEDS: SENNA/DOCUSATE NA (8.6MG/50MG) TAB PO SCH ×2 (08:44→20:48)
[2017-02-21] MEDS: FERROUS SULFATE (EC) 325 MG TAB PO SCH ×3 (08:44→20:47)
--- NOTE | 2017-02-21 21:32 | QN ---
Documentation Comment No complaint Afebrile BP still elevated Abdomen soft Will add Procardia to control BP. Labs ordered MISTY ERICKSON MD Feb 21, 2017 21:32
[2017-02-21 21:44] LABS: ADD SCAN DIFF NO; BASOPHILS % 0.3 % (0.0-2.0); EOSINOPHILS # 0.2 10^3/ul (0.0-0.5); EOSINOPHILS % 3.3 % (0.0-7.0); HEMOGLOBIN 9.9 g/dl (12.0-16.0); LYMPHOCYTES # 1.8 10^3/ul (0.8-2.9); LYMPHOCYTES % 25.1 % (15.0-51.0); MEAN CORPUSCULAR HEMOGLOBIN 30.2 pg (29.0-33.0); MEAN CORPUSCULAR VOLUME 91.5 fl (82.0-101.0); MEAN PLATELET VOLUME 8.7 fl (7.4-10.4); MONOCYTE # 0.5 10^3/ul (0.3-0.9); MONOCYTES % 7.3 % (0.0-11.0); NEUTROPHIL # 4.6 10^3/ul (1.6-7.5); NEUTROPHILS % 63.6 % (39.0-77.0); PLATELET COUNT 287 10^3/UL (140-415); RED BLOOD COUNT 3.28 10^6/ul (4.20-5.40); RED CELL DISTRIBUTION WIDTH 13.4 % (11.5-14.5); WHITE BLOOD COUNT 7.3 10^3/ul (4.8-10.8)
[2017-02-21] MEDS: NIFEdipine (XL) 30 MG TAB PO SCH (21:55)
[2017-02-21 22:01] LABS: INR 0.89; PT RATIO 0.9
[2017-02-21 22:02] LABS: PARTIAL THROMBOPLASTIN TIME 28.2 Sec (25.0-35.0)
[2017-02-21 22:03] LABS: ALBUMIN/GLOBULIN RATIO 1.37; BILIRUBIN,INDIRECT 0.1 mg/dl (0-1.1); BILIRUBIN,TOTAL 0.1 mg/dl (0.2-1.3); CALCIUM 8.8 mg/dl (8.4-10.2); CREATININE 0.53 mg/dl (0.44-1.00); POTASSIUM 3.3 mmol/L (3.5-5.1); TOTAL PROTEIN 6.9 g/dl (6.1-8.1); URIC ACID 5.1 mg/dl (3.1-7.9)
[2017-02-22] VITALS (7 sets, daily range): BP systolic 119–159; BP diastolic 76–89; PULSE 75–88; RESP 19–20
[2017-02-22] MEDS: OXYCODONE/ACETAMINOPHEN (5/325) TAB PO PRN ×2 (02:13→11:15)
[2017-02-22] MEDS: IBUPROFEN 800 MG TAB PO SCH ×2 (05:39→13:16)
[2017-02-22] MEDS: LABETALOL 200 MG TAB PO SCH ×2 (05:40→14:34)
[2017-02-22] MEDS: FERROUS SULFATE (EC) 325 MG TAB PO SCH ×2 (09:08→13:16)
[2017-02-22] MEDS: SENNA/DOCUSATE NA (8.6MG/50MG) TAB PO SCH (09:08)
[2017-02-22] MEDS: NIFEdipine (XL) 30 MG TAB PO SCH (09:08)
== END 2017-02-22 16:18 | disposition home or self-care (01) | DRG 766 ==
LOC: L-D 10:20 → PP1 17:29
PROVIDERS: ADMIT Obstetrics & Gynecology; ATTEND Obstetrics & Gynecology
PROC: 0UB70ZZ Excision of Bilateral Fallopian Tubes, Open Approach (ICD-10-PCS; 2017-02-17)
PROC: 10D00Z1 Extraction of Products of Conception, Low, Open Approach (ICD-10-PCS; principal; 2017-02-17 12:30)
DX: O34.211 Maternal care for low transverse scar from previous cesarean delivery (principal); O16.4 Unspecified maternal hypertension, complicating childbirth; Z3A.39 39 weeks gestation of pregnancy; Z30.2 Encounter for sterilization; Z37.0 Single live birth
CPT/HCPCS: 80053; 84560; 85025; 85610; 85730; 86592; 86850; 86900; 86901; 87340; 88302; 90715; 94760; 99464; J0690; J1100; J1200; J1885; J2270; J2274; J2370; J2405; J2590; J2765; J7120